=== PATIENT | male | born 1975 | race Caucasian/White ===

== ENCOUNTER 2017-09-19 16:37 | Emergency (ER) | payer OTHER ==
[~2017-09-19] VITALS: Ht 175.3 cm; Wt 122.7 kg
[2017-09-19 18:28] VITALS: BP 168/90
== END 2017-09-19 18:29 | disposition home or self-care (01) ==
LOC: EME 16:37
DX: S82.141A Displaced bicondylar fracture of right tibia, initial encounter for closed fracture (principal); W00.0XXA Fall on same level due to ice and snow, initial encounter; Z98.890 Other specified postprocedural states
CPT/HCPCS: 73564; 99281; 99284